=== PATIENT | female | born 1965 | race Caucasian/White ===

== ENCOUNTER 2016-08-27 06:07 | Observation (INO) | payer MEDICARE, OTHER ==
[~2016-08-27] VITALS: Ht 157.5 cm; Wt 60.3 kg
[2016-08-27] MEDS ORDERED: LEVOTHYROXINE25 MCG PO (07:13)
[2016-08-27] MEDS ORDERED: NABUMETONE500 MG PO (07:14)
[2016-08-27] MEDS ORDERED: BIOTIN PO (07:15)
[2016-08-27] MEDS ORDERED: ASPIR 8181 MG PO (07:16)
[2016-08-27] MEDS ORDERED: NEURONTIN 400400 MG PO (07:16)
[2016-08-27] MEDS ORDERED: PREDNISONE10 MG PO (07:17)
[2016-08-28 05:21] LABS: HEMOGLOBIN 10.2 gm/dl (12.3-15.3); RED BLOOD COUNT 4.36 M/UL (4.00-5.10); WHITE BLOOD COUNT 8.5 K/UL (4.5-11.0)
[2016-08-28 05:33] LABS: BUN/CREATININE RATIO 12 (0-10)
[2016-08-29] MEDS ORDERED: KEFLEX500 MG PO (14:41)
[2016-08-29] MEDS ORDERED: VITAMIN D50000 UNIT PO (14:42)
[2016-08-29] MEDS ORDERED: ZOFRAN 4 MG TAB4 MG PO (14:48)
[2016-08-29] MEDS ORDERED: VITAMIN C500 M1 PO (14:48)
[2016-08-29] MEDS ORDERED: LOVENOX SY40 MG/0.4 SQ (14:49)
[2016-08-29] MEDS ORDERED: PERCOCET 10-321 EACH PO (14:50)
[2016-08-29] MEDS ORDERED: IBUPROFEN800 MG PO (14:51)
== END 2016-08-29 16:27 | disposition home or self-care (01) ==
LOC: OR 06:07 → M/S 16:14 → OR 08-28 08:25 → M/S 08-28 08:26
PROVIDERS: Podiatrist Foot & Ankle Surgery; ADMIT Orthopaedic Surgery
PROC: 0SGH07Z Fusion of Right Tarsal Joint with Autologous Tissue Substitute, Open Approach (ICD-10-PCS; 2016-08-27)
PROC: 0SGH07Z Fusion of Right Tarsal Joint with Autologous Tissue Substitute, Open Approach (ICD-10-PCS; 2016-08-27)
PROC: 0L8S3ZZ Division of Right Ankle Tendon, Percutaneous Approach (ICD-10-PCS; 2016-08-27)
PROC: 0QBQ0ZZ Excision of Right Toe Phalanx, Open Approach (ICD-10-PCS; 2016-08-27)
PROC: 0QB20ZZ Excision of Right Pelvic Bone, Open Approach (ICD-10-PCS; principal; 2016-08-27 07:45)
PROC: 0SGH07Z Fusion of Right Tarsal Joint with Autologous Tissue Substitute, Open Approach (ICD-10-PCS; 2016-08-27 07:45)
DX: M06.9 Rheumatoid arthritis, unspecified (principal); M19.071 Primary osteoarthritis, right ankle and foot; M21.6X9 Other acquired deformities of unspecified foot; M20.5X1 Other deformities of toe(s) (acquired), right foot; M89.9 Disorder of bone, unspecified
CPT/HCPCS: 36415; 73610; 73630; 76000; 80048; 85025; 85027; 96365; 96366; 96372; 96375; 96376; 97110; 97116; 97530; C1713; C1762; G0378; J0690; J1650; J1885; J2250; J2270; J2405; J2795; J3010; J3370; J7120

== ENCOUNTER 2016-09-10 22:44 | Emergency (ER) | payer MEDICARE, OTHER ==
[~2016-09-10 22:44] MED LIST: ASPIR 8181 MG PO; BIOTIN PO; IBUPROFEN800 MG PO; KEFLEX500 MG PO; LEVOTHYROXINE25 MCG PO; LOVENOX SY40 MG/0.4 SQ; NABUMETONE500 MG PO; NEURONTIN 400400 MG PO; PERCOCET 10-321 EACH PO; PREDNISONE10 MG PO; VITAMIN C500 M1 PO; VITAMIN D50000 UNIT PO; ZOFRAN 4 MG TAB4 MG PO
== END 2016-09-11 01:55 | disposition home or self-care (01) ==
LOC: ER1 22:44
DX: Z46.89 Encounter for fitting and adjustment of other specified devices (principal)
CPT/HCPCS: 99283

== ENCOUNTER → 2016-10-05 | Outpatient (CLI) | payer MEDICARE, OTHER | LOC: KOH-I 14:05 | DX: I82.409 Acute embolism and thrombosis of unspecified deep veins of unspecified lower extremity (principal) | CPT/HCPCS: 93971 ==

== ENCOUNTER → 2016-11-17 | Outpatient (CLI) | payer MEDICARE | LOC: KOH-I 09:10 | DX: M84.371A Stress fracture, right ankle, initial encounter for fracture (principal); Z98.1 Arthrodesis status; Z96.7 Presence of other bone and tendon implants | CPT/HCPCS: 73700 ==

== ENCOUNTER 2016-11-21 12:48 | Emergency (ER) | payer MEDICARE | END 2016-11-21 16:15 | disposition home or self-care (01) | LOC: ER1 12:48 | DX: M25.571 Pain in right ankle and joints of right foot (principal); F11.23 Opioid dependence with withdrawal; J44.9 Chronic obstructive pulmonary disease, unspecified; M06.9 Rheumatoid arthritis, unspecified; W01.0XXA Fall on same level from slipping, tripping and stumbling without subsequent striking against object, initial encounter | CPT/HCPCS: 73610; 73630; 99283 ==

== ENCOUNTER → 2021-05-12 | Outpatient (CLI) | payer MEDICARE, OTHER ==
[~2021-05-12] MED LIST changes: +ALENDRONATE SOD10 MG PO; +CELEBREX 200MG200 MG PO; +CYMBALTA30 MG PO; +DICLOFENAC GEL 1% TOP; +ELIQUIS5 MG PO; +FEOSOL325 MG PO; +FOSAMAX70 MG PO; +IBU800 MG PO; +KEFLEX CAP 500500 MG PO; +LYRICA300 MG PO; +METAFOLBIC TAB1 EACH PO; +MINUS WEIGHT P1 EACH PO; +NORCO 5-325 TA1 EACH PO; +OLOPATADINE 0.1% EYEBOTH; +PHENERGAN 25 MG25 M1 PO; +PLAQUENIL200 MG PO; +PREDNISONE1 MG PO; +PREDNISONE5 MG PO; +RINVOQ ER15 MG PO; +SUBOXONE 8 MG-1 EACH PO; +VALIUM 5 MG TAB5 MG PO; +VITAMIN C 500500 MG PO; +VITAMIN D PO; +XELJANZ5 MG PO; +ZESTRIL20 MG PO
== END ==
LOC: KOH-I 14:40
DX: M25.571 Pain in right ankle and joints of right foot (principal)
CPT/HCPCS: 73610

== ENCOUNTER → 2021-05-18 | Outpatient (CLI) | payer MEDICARE, OTHER ==
[2021-05-18 14:16] LABS: BUN/CREATININE RATIO 22 (0-10)
[2021-05-18 14:28] LABS: HEMOGLOBIN 13.7 gm/dl (12.3-15.3); RED BLOOD COUNT 4.49 M/UL (4.00-5.10); WHITE BLOOD COUNT 4.5 K/UL (4.5-11.0)
== END ==
LOC: OPSV2 12:30
PROVIDERS: Podiatrist Foot & Ankle Surgery
DX: Z01.818 Encounter for other preprocedural examination (principal); T84.038A Mechanical loosening of other internal prosthetic joint, initial encounter; Z20.822 Contact with and (suspected) exposure to COVID-19
CPT/HCPCS: 80048; 85027; 85610; 85730; 93005; U0003

== ENCOUNTER → 2021-05-20 | Day surgery (SDC) | payer MEDICARE, OTHER ==
[~2021-05-20] VITALS: Ht 157.5 cm; Wt 86.6 kg
== END | disposition home or self-care (01) ==
LOC: OR 05:48
DX: T84.84XA Pain due to internal orthopedic prosthetic devices, implants and grafts, initial encounter (principal); G89.18 Other acute postprocedural pain; Z20.822 Contact with and (suspected) exposure to COVID-19; Z87.891 Personal history of nicotine dependence; F41.9 Anxiety disorder, unspecified; E03.9 Hypothyroidism, unspecified; Z88.2 Allergy status to sulfonamides; Z88.1 Allergy status to other antibiotic agents
CPT/HCPCS: 73600; 76000; J1100; J2250; J2405; J2704; J2795; J3010; J3370; J7030; J7120

== ENCOUNTER → 2021-06-11 | Outpatient (CLI) | payer MEDICARE, OTHER | LOC: KOH-I 09:27 | DX: M25.571 Pain in right ankle and joints of right foot (principal) | CPT/HCPCS: 73610 ==

== ENCOUNTER → 2021-07-06 | Outpatient (CLI) | payer MEDICARE, OTHER | LOC: KOH-I 13:12 | DX: M25.571 Pain in right ankle and joints of right foot (principal); M19.071 Primary osteoarthritis, right ankle and foot | CPT/HCPCS: 73610 ==

== ENCOUNTER → 2021-10-12 | Outpatient (CLI) | payer MEDICARE, OTHER | LOC: KOH-I 11:03 | DX: M25.571 Pain in right ankle and joints of right foot (principal) | CPT/HCPCS: 73610 ==

== ENCOUNTER → 2021-10-26 | Outpatient (CLI) | payer MEDICARE, OTHER | LOC: KOH-I 15:00 | DX: R10.2 Pelvic and perineal pain (principal); S32.301A Unspecified fracture of right ilium, initial encounter for closed fracture; M46.1 Sacroiliitis, not elsewhere classified | CPT/HCPCS: 72192 ==

== ENCOUNTER → 2021-11-26 | Outpatient (CLI) | payer MEDICARE, OTHER | LOC: EXRD 10:41 | DX: M81.0 Age-related osteoporosis without current pathological fracture (principal) | CPT/HCPCS: 77080 ==